=== PATIENT | female | born 1990 | race Caucasian/White ===

== ENCOUNTER → 2017-04-11 | Outpatient (CLI) | payer SELFPAY ==
[~2017-04-11] MED LIST: BCP; NORCO 5/3251 TABLET PO; OMEPRAZOLE40 M1 PO; XANAX0.25 MG PO; ZANTAC150 MG PO; ZOLOFT50 MG PO
== END | disposition home or self-care (01) ==
LOC: RAD 09:32
DX: Z82.49 Family history of ischemic heart disease and other diseases of the circulatory system (principal)
CPT/HCPCS: 70544

== ENCOUNTER 2017-08-09 10:14 | Emergency (ER) | payer SELFPAY ==
[~2017-08-09] VITALS: Ht 167.6 cm; Wt 106.9 kg
[2017-08-09] MEDS ORDERED: DIFLUCAN150 MG PO (12:01)
[2017-08-09] MEDS ORDERED: MOTRIN800 MG PO (12:01)
[2017-08-09] MEDS ORDERED: VIBRAMYCIN100 MG PO (12:01)
[2017-08-09 13:12] LABS: SOURCE URINE
[2017-08-09 13:15] VITALS: BP 127/86
[2017-08-09 13:18] LABS: APPEARANCE SL.HAZY ((CLEAR)); BILIRUBIN NEGATIVE; BLOOD LARGE; COLOR YELLOW ((YELLOW)); GLUCOSE (STRIP) NEGATIVE; KETONES NEGATIVE; LEUKOCYTES NEGATIVE; NITRITE NEGATIVE; PROTEIN (STRIP) NEGATIVE; UROBILINOGEN 0.2 MG/DL (0.2-1.0)
[2017-08-09 13:33] LABS: BACTERIA RARE /HPF; EPITHELIAL CELLS RARE /HPF; MUCUS TRACE /LPF; RED BLOOD CELLS TNTC /HPF (0-5); WHITE BLOOD CELLS 0-5 /HPF (0-5)
[2017-08-12 12:39] LABS: CHLAMYDIA TRACHOMATIS NEGATIVE; NEISSERIA GONORRHOEAE NEGATIVE
== END 2017-08-09 13:17 | disposition home or self-care (01) ==
LOC: EME 10:14
PROVIDERS: Nurse Practitioner Family
PROC: 0U9L0ZZ Drainage of Vestibular Gland, Open Approach (ICD-10-PCS; principal; 2017-08-09)
DX: N75.0 Cyst of Bartholin's gland (principal); E11.9 Type 2 diabetes mellitus without complications; Z79.84 Long term (current) use of oral hypoglycemic drugs; Z88.5 Allergy status to narcotic agent; Z88.8 Allergy status to other drugs, medicaments and biological substances
CPT/HCPCS: 81003; 84703; 87491; 87591; 99281; 99284

== ENCOUNTER 2017-09-06 08:50 | Emergency (ER) | payer SELFPAY ==
[~2017-09-06] VITALS: Ht 167.6 cm; Wt 105.0 kg
[~2017-09-06 08:50] MED LIST changes: +DIFLUCAN150 MG PO; +MOTRIN800 MG PO; +VIBRAMYCIN100 MG PO
[2017-09-06 08:54] VITALS: BP 155/96
[2017-09-06] MEDS ORDERED: BACTRIM,SEPT1 TABLET PO (10:30)
== END 2017-09-06 10:52 | disposition home or self-care (01) ==
LOC: EME 08:50
PROC: 0U9MXZZ Drainage of Vulva, External Approach (ICD-10-PCS; principal; 2017-09-06)
DX: N75.1 Abscess of Bartholin's gland (principal); K21.9 Gastro-esophageal reflux disease without esophagitis; E11.9 Type 2 diabetes mellitus without complications; I10 Essential (primary) hypertension; E28.2 Polycystic ovarian syndrome; F41.9 Anxiety disorder, unspecified; Z88.1 Allergy status to other antibiotic agents; Z88.5 Allergy status to narcotic agent; Z88.8 Allergy status to other drugs, medicaments and biological substances
CPT/HCPCS: 99281; 99283